=== PATIENT | female | born 1955 | race Caucasian/White ===

== ENCOUNTER 2019-07-12 07:12 | Day surgery (SDC) | payer OTHER ==
[2019-07-12] MEDS ORDERED: ETOMIDATE 20 MG INJ (08:29)
[2019-07-12] MEDS ORDERED: FENTAnyl 50 MCG/ML VIAL (08:29)
== END 2019-07-12 13:38 | disposition home or self-care (01) ==
LOC: GIL 07:12
DX: Z12.11 Encounter for screening for malignant neoplasm of colon (principal); D12.0 Benign neoplasm of cecum; K64.4 Residual hemorrhoidal skin tags; E11.9 Type 2 diabetes mellitus without complications; E03.9 Hypothyroidism, unspecified; I50.9 Heart failure, unspecified; Z86.73 Personal history of transient ischemic attack (TIA), and cerebral infarction without residual deficits
CPT/HCPCS: 45385; 82962; 88305